=== PATIENT | female | born 1995 ===

== ENCOUNTER 2017-07-14 04:48 | Inpatient (IN) | payer MEDICAID, SELFPAY ==
[2017-07-14 05:14] VITALS: BMI 31.1
[2017-07-14] MEDS ORDERED: ceFAZolin IV 2 gm in Dextrose 2 GM/50 ML BAG IVPB ONE (05:14)
[2017-07-14] MEDS ORDERED: Oxytocin 30 units/LR 500ML 30 U/500 ML BAG IV SCH (05:15)
[2017-07-14] MEDS ORDERED: Lactated Ringer's 1,000 ML IV SCH ×3 (05:15→15:28)
[2017-07-14] MEDS: Lactated Ringer's 1,000 ML IV SCH ×2 (05:45→07:30)
[2017-07-14 06:21] LABS: BASO # 0.1 K/uL (0.0-0.2); BASO % 0.7 % (0.0-2.0); EOS # 0.1 K/uL (0.0-0.7); EOS % 1.1 % (0.0-4.0); HEMOGLOBIN 10.5 g/dL (12.0-16.0); LYMPH # 2.9 K/uL (1.0-4.3); LYMPH % 24.6 % (20.0-40.0); MEAN CELL VOLUME 75.6 fl (81.0-99.0); MEAN CORPUSCULAR HEMOGLOBIN 24.5 pg (27.0-31.0); MEAN CORPUSCULAR HGB CONC 32.4 g/dL (33.0-37.0); MONO # 0.9 K/uL (0.0-0.8); MONO % 8.1 % (0.0-10.0); NEUT # 7.6 K/uL (1.8-7.0); NEUT % 65.5 % (50.0-75.0); NRBC % 0.2 % (0.0-0.0); RBC 4.3 Mil/uL (3.80-5.20); RED CELL DISTRIBUTION WIDTH 15.4 % (11.5-14.5); WHITE BLOOD COUNT 11.6 K/uL (4.8-10.8)
[2017-07-14] MEDS ORDERED: ceFAZolin IV 1 gm in Dextrose 1 GM/50 ML BAG IVPB ONE (10:30)
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
[2017-07-14] MEDS ORDERED: Morphine 1 mg/ml preservative-free Inj(Duramorph) ONE (10:55)
[2017-07-14] MEDS ORDERED: Oxycodone/Acetaminophen 5/325 mg Tab PO PRN ×4 (12:04→15:28)
--- NOTE | 2017-07-14 12:26 | OBDS ---
DELIVERY PERSONNEL Delivery Doctor: Ari Lora MD Scrub Nurse: Nano Gatica Medical Staff Specialist: Jenise Rasheed RN Anesthesiologist: Andrea Pisano MD Resident: Dr. Mcdowell MATERNAL INFORMATION Delivery Anesthesia: Spinal Medications in Delivery: pitocin 30 untis Placenta Cultured: No Maternal Complications: None Provider Comments: Pre-op dx: 21 yo at 39 wks w/ h/o previous section, desires repe at section Post-op dx: Same Procedure: Repeat low transverse section Surgeon: Guido Pump Room Operator: Drs. Strickland and Faizan Mcdowell, PGY-2 Anesthesiologist: Dr. Nicolas Pisano Anesthesia: Spinal Findings: Viable male infant delivered through clear fluid at 11:19am. Apgars 9 and 9. Wt 3595 g ms, 7#14.8. Nuchal cord x 1 easily reduced. Normal appearing uterus, tubes and ovaries. Complications: None EBL 750 mL LABOR SUMMARY EDC: 07/21/2017 00:00 No. Babies in Womb: 1 Attempted: No Labor Anesthesia: Spinal LABOR INFORMATION Reason for Induction: Not Applicable Oxytocin: N/A Group B Beta Strep: Negative Steroids Given: None Reason Steroids Not Administered: Not Applicable MEMBRANES Membranes Rupture Method: Artificial Amniotic Fluid Color: Clear Amniotic Fluid Amount: Moderate Amniotic Fluid Odor: Normal STAGES OF LABOR Stage 3 hrs: 0 Stage 3 min: 1 CSECTION DELIVERY Primary Indication: Repeat Elective CSection Urgency: Elective CSection Incidence: Repeat Labor: No Labor Elective: Elective CSection Incision: Lower Uterine Transverse BABY A INFORMATION Infant Delivery Date/Time: 07/14/2017 11:19 Method of Delivery: Born in Route : No : N/A Forceps: N/A Vacuum Extraction: N/A Shoulder Dystocia : No SHOULDER DYSTOCIA BABY A Infant Delivery Date/Time: 07/14/2017 11:19 PRESENTATION/POSITION BABY A Presentation: Cephalic Cephalic Presentation: Vertex Breech Presentation: N/A PLACENTA INFORMATION BABY A Placenta Delivery Time : 07/14/2017 11:20 Placenta Method of Delivery: Spontaneous Placenta Status: Delivered SCORES BABY A Heart Rate 1 min: >100 bpm Resp Effort 1 min: Good Cry Reflex Irritability 1 min: Cough or Sneeze or Pulls Away Muscle Tone 1 min: Active Motion Color 1 min: Body [place], Extremities Blue Resuscitation Effort 1 min: Tactile Stimulation SCORE 1 MIN: 9 Heart Rate 5 min: >100 bpm Resp Effort 5 min: Good Cry Reflex Irritability 5 min: Cough or Sneeze or Pulls Away Muscle Tone 5 min: Active Motion Color 5 min: Body [place], Extremities Blue Resuscitation Effort 5 min: Tactile Stimulation SCORE 5 MIN: 9 INFORMATION BABY A Gestational Age at Delivery: 39.0 Gestational Status: Term Outcome : Liveborn Infant Condition : Stable Sex: Male IDENTIFICATION/MEDS BABY A ID Band Number: [id number] ID Band Location: Left Leg; Left Arm WEIGHT/LENGTH BABY A Infant Birthweight (gms): 3595 Weight (lb): 7 Infant Weight (oz): 15 CORD INFORMATION BABY A No. Cord Vessels: 3 Nuchal Cord : N/A Cord Blood Taken: N/A Suction: Mouth; Nose ASSESSMENT BABY A Infant Complications: None Physical Findings at Delivery: Within Normal Limits Respirations: Appears Normal Manager [employer]/ALS Called : No Care By: Robin Hirsch SWagnerRN Transferred To: Remains with Mother
--- NOTE | 2017-07-14 14:58 | OP ---
PROCEDURE DATE: 07/14/2017 PREOPERATIVE DIAGNOSES: This is a 21-year-old G3, P1-0-1-1 at 39 weeks with a history of a previous section, desires repeat section. POSTOPERATIVE DIAGNOSES: This is a 21-year-old G3, P1-0-1-1 at 39 weeks with a history of a previous section, desires repeat section. PROCEDURE: Repeat low-transverse section. SURGEON: Sonya Lora MD FAMILY CENTERED SPECIALIST: Drs. Susan Strickland and Faizan Mcdowell, PGY-2. Dr. Strickland was the first rn medical surgical and participated in the surgery for the entire duration of the case. She helped create exposure. She also helped maintain hemostasis, operated throughout the case on the side of the patient that was across from her and assisted in the delivery of the infant by guiding the head and by applying fundal pressure. She also repaired the right rectus muscle. This case could not have been completed without her assistance. TYPE OF ANESTHESIA: Spinal. ANESTHESIA ADMINISTERED BY: Nicolas Pisano DO FINDINGS: Viable male infant delivered through clear fluid at 11:19 a.m. Nuchal cord x1 was easily reduced. Apgars were 9 and 9 at one and five minutes respectively. The weight was 3595 grams or 7 pounds 14.8 ounces. Normal- appearing uterus, tubes and ovaries. Omentum was noted to be adherent to the peritoneum. COMPLICATIONS: None. ESTIMATED BLOOD LOSS: About 750 mL. DESCRIPTION OF THE PROCEDURE: The patient was taken to the operating room where spinal anesthesia was placed. She was then prepped and draped in the normal sterile fashion in the dorsal supine position with a leftward tilt. A Galvan was placed in the bladder. A time-out was done. The spinal was tested and found to be adequate. A Pfannenstiel skin incision was then made with a scalpel and carried through to the underlying layer of fascia with the Bovie. The fascia was incised in the midline, and the incision was extended laterally with the Bovie over a Jenny. The inferior aspect of the fascial incision was then grasped with Rosalie clamp, elevated, and the underlying rectus muscles were dissected off bluntly and with a Bovie. Attention was then turned to the inferior aspect of this incision, which in a similar fashion was grasped, tented up with Rosalie clamp, and rectus muscles dissected off bluntly and with the Bovie. The rectus muscles were then in the midline, the peritoneum was found to have been entered. The peritoneal incision was then extended superiorly and inferiorly with good visualization of the bladder. The omentum was noted to be adherent to the peritoneum. The bladder blade was then inserted and the vesicouterine peritoneum was identified, grasped with the pickups and entered sharply with the Metzenbaum scissors. This incision was then extended laterally and the bladder flap was created digitally. The bladder blade was then reinserted and the lower uterine segment was incised in transverse fashion with the scalpel. The uterine incision was then extended in a cephalocaudal direction digitally. The bladder blade was removed. The right rectus muscle was cut with bandage scissors to make more room for the delivery. The 's head delivered atraumatically. Nuchal cord x1 with easily reduced as the infant was delivered. The nose and mouth were suctioned with a bulb suction. The cord was clamped and cut. The was handed out to the waiting derrick boat captain. Cord blood was collected. The placenta was then delivered manually. The uterus was exteriorized and cleared of all clots and debris with a dry sponge curettage. The uterine incision was repaired with 0 Vicryl in a running locked fashion. Two stitches of 2-0 Monocryl were placed for hemostasis and then a second layer of 0 Vicryl was used on the right side of the incision in an imbricating fashion for further hemostasis. The abdomen was then well irrigated. The uterus was returned to the abdomen. The gutters were cleared of all clots. The uterine incision was re-examined and found to be hemostatic. The right rectus muscle was reapproximated with a few interrupted stitches of 2-0 Vicryl. An interrupted stitch of 2-0 chromic was then used to reapproximated the rectus muscles. The fascia was reapproximated with 0 Vicryl in a running fashion. The subcutaneous fat was irrigated. The Bovie was applied to bleeders for hemostasis. Interrupted stitches of 2-0 plain gut were used to close the space of the fat. The skin was closed in a subcuticular fashion with 4-0 Monocryl. The patient tolerated the procedure well. Sponge, lap, and needle counts were correct. The patient received 1 g of Ancef prior to the procedure. The patient was taken to recovery room in stable condition. Sonya Lora MD TONY
[2017-07-15 06:47] LABS: BASO # 0.1 K/uL (0.0-0.2); BASO % 0.5 % (0.0-2.0); EOS # 0.1 K/uL (0.0-0.7); EOS % 1.2 % (0.0-4.0); HEMOGLOBIN 8.7 g/dL (12.0-16.0); LYMPH # 2.3 K/uL (1.0-4.3); LYMPH % 19.3 % (20.0-40.0); MEAN CELL VOLUME 75.9 fl (81.0-99.0); MEAN CORPUSCULAR HEMOGLOBIN 24.2 pg (27.0-31.0); MEAN CORPUSCULAR HGB CONC 31.8 g/dL (33.0-37.0); MEAN PLATELET VOLUME 9.8 fl (7.2-11.7); MONO # 1.2 K/uL (0.0-0.8); MONO % 9.9 % (0.0-10.0); NEUT # 8.1 K/uL (1.8-7.0); NEUT % 69.1 % (50.0-75.0); RBC 3.59 Mil/uL (3.80-5.20); RED CELL DISTRIBUTION WIDTH 15.5 % (11.5-14.5); WHITE BLOOD COUNT 11.7 K/uL (4.8-10.8)
--- NOTE | 2017-07-15 08:19 | CP.PCM.PCO ---
Addendum Addendum: 07/15/17 08:17 Patient seen this morning. Patient recovering well and appropriately after repeat for of son. Patient reports crampy pain relieved w/ medication. Patient reports that she will bottle and breast feed.
--- NOTE | 2017-07-15 10:28 | OBPPN ---
Datetime: 07/15/2017 06:54 PP Pain Prov: Within normal limits PP Nausea Prov: Denies PP Flatus Prov: No PP BM Prov: No PP Heart Prov: Normal PP Lungs Prov: Normal PP Abdomen/Uterus Prov: Normal PP Lochia Prov: Normal PP CVA Tenderness Prov: Normal PP Extremities Prov: Normal PP C/S Incision Prov: Normal PP Progress Prov: Normal PP Impression Prov: Normal progression PP Plan Prov: Continue present management PP Progress Note Prov: 21 y/o F now , s/p repeat on 07/14/17. Pt reports feeling w ell. Pain around surgical incision and pelvis is well controlled with medication. Pt afebrile, tolera ting PO, has good appetite with NO acute events overnight. Pt able to ambulate. Pt voiding with no is sues, not passing gases and NO bowel movement yet. Pt with NO difficulties. Lochia less than menses. Pt denies headache, dizziness, CP, SOB, N/V or calf tenderness All systems reviewed and negative except as above. O: PE: -Gen: A_O, resting comfortably on bed, NAD. -Lungs: CTAB, No W/R/R. -CV: RRR, S1 and S2 present. -ABD: soft, BS +, firm fundus below umbilicus. Incision clean, dry and intact with NO induration, suppuration or bleeding. -EXT: No cyanosis, non-tender calves. A/P 21 y/o F on POD 1, stable, recovering well from . --Incision dressing removed, pt tolerated well. --Continue with post- management. -- and ambulation encouraged. --Anticipated discharge 07/17/17. Case discussed with OB contracts representative. Nyla PGY-1 OB Hospitalist on-call. Pt seen and examined on rounds 10am...agree wtih PGY1 note...TEA H/H 12/19 - anemia asymptomatic IP PP Procedures: None Vital Signs Provider PP: Reviewed
--- NOTE | 2017-07-16 08:23 | OBPPN ---
Datetime: 07/16/2017 06:20 PP Pain Prov: Within normal limits PP Nausea Prov: Denies PP Flatus Prov: Yes PP BM Prov: Yes PP Heart Prov: Normal PP Lungs Prov: Normal PP Abdomen/Uterus Prov: Normal PP Lochia Prov: Normal PP CVA Tenderness Prov: Normal PP Extremities Prov: Normal PP C/S Incision Prov: Not Applicable PP Progress Prov: Normal PP Impression Prov: Normal progression PP Plan Prov: Continue present management PP Progress Note Prov: 21 y/o F now , s/p repeat on 07/14/17. Pt reports feeling w ell. Pain around surgical incision and pelvis is well controlled with medication. Pt afebrile, tolera ting PO with NO nausea or acute events overnight. Pt voiding with no issues, passing gases and had 2 bowel movements. Pt with some difficulties and supplementing with formula. Lochia a lit tle less than menses. Pt able to ambulate. Pt denies headache, dizziness, CP, SOB, N/V or calf tender ness All systems reviewed and negative except as above. O: PE: -Gen: A_O, resting comfortably on bed, NAD. -Lungs: CTAB, No W/R/R. -CV: RRR, S1 and S2 present. -ABD: soft, BS +, firm fundus below umbilicus. Incision clean, dry and intact with NO induration, suppuration or bleeding, Sterile strips in place. -EXT: No cyanosis, non-tender calves. A/P 21 y/o F on POD 2, stable, recovering well from . --Continue with post- management. -- and ambulation encouraged. --Anticipated discharge 07/17/17. Case discussed with OB television camera operator. Nyla PGY-1 IP PP Procedures: None Vital Signs Provider PP: Reviewed
[2017-07-16] MEDS ORDERED: Pneumococcal 23-Valent Vaccine IM ONE (12:58)
--- NOTE | 2017-07-17 08:59 | OBPPN ---
Datetime: 07/17/2017 07:40 PP Pain Prov: Within normal limits PP Nausea Prov: Denies PP Flatus Prov: Yes PP BM Prov: No PP Breasts Prov: Normal PP Heart Prov: Normal PP Lungs Prov: Normal PP Abdomen/Uterus Prov: Normal PP Lochia Prov: Normal PP Vulva/Perineum Prov: Normal PP CVA Tenderness Prov: Not Done PP Extremities Prov: Normal PP C/S Incision Prov: Normal PP Progress Prov: Normal PP Comments Phys Exam Prov: Abd: Soft,NT, BS - PP Impression Prov: Normal progression PP Plan Prov: Continue present management; Discharge PP Progress Note Prov: S: 22 YO POD 3, s/p repeat . Pt is seen and examined this AM. N o acute overnight events. Pt is endorsing mild pelvic pain but pain is well controlled with pain meds . Pt is ambulating around the room and in the hallway without any difficulties. Bleeding has improved , light periods. Tolerating PO diet. No BM yet, but passing flatus. Denies chest pain, dyspnea, n/v, fever/chills, diarrhea, nausea/vomiting, and calf pain. [employer] used for translation, [id number] O: VS: wnl, afebrile GEN: Awake, alert. NAD HEENT: EOMI, moist mucosa. LUNGS: CTA B/L, no wheezing, rhonci, or rales CVS: RRR, S1,S2 no murmurs ABD: ND, +BS, soft abdomen, firm, fundus below umbilical level. Incision: Clean, dry and intact. No induration, redness or fluctuation. Steri strips intact, no de hiscence EXT: No edema, neg calf tenderness NEURO/PSYCHI: AAOx3, no grossly focal deficit, preserved affect and mood. Assessment/Plan: 22 YO POD 3, s/p repeat on 07/14/17. Pt gave to a baby boy @1 1:19. Pt remains afebrile, tolerating pain with medication, good PO intake and urinating without any difficulties. Doing well on POD 3. -C/w regular diet as tolerated. -OOB with caution SCDs for DVT prophylaxis -C/w Percocet 5/325 mg and Ibuprofen 600 mg for pain prn -Encourage and ambulating. -C/w Colace 100mg PO BID -will d/c pt home today with follow up in clinic with Dr. Michelle Agustin, PGY I Vital Signs Provider PP: Reviewed; Within Normal Limits
--- NOTE | 2017-07-17 08:59 | OBDCSUM ---
Datetime: 07/17/2017 07:44 Discharged to, Provider: Home Follow up at, Provider: Dr. Martinez Disch Instr Activity: Normal activity; May be up to bathroom; May be up for meals; May Shower Disch Instr Diet: Regular Discharge Instructions, Provider: Routine instructions given Discharge Diagnosis, Provider: Term Delivered Discharge Time: 07/17/2017 07:44 Follow up in weeks, Provider: 1 week Contraception discussed, Prov: Yes Disch Activity Restrictions: No exercising; No lifting; No driving; Minimize stair-climbing; No sexu al activity; Nothing in vagina - Junction, tampons, douche Discharge Comment, Provider: 22 YO POD3, s/p repeat on 07/14/17 @ 11:19. Pt gave to a baby boy. Baby was born at 3595g, with scores of 9/9. No complications during the post pa rtum period, incision is intact, healing well, clean and dry. Pt is ambulating and tolerating diet. DISCHARGE INSTRUCTIONS: 1. Encourage 2. PNV 1 tab po q/day 3. Ibuprofen 600 mg 1 tab po prn q6 if moderate pain 4. Ambulatory with caution, nothing per vagina, no heavy lifting, avoid stairs, if excessive bleed ing or fever please come back to the ED 5. Please follow up in Clinic with Dr. Martinez for WC in 1 week and PP follow up in 6 weeks Please see a MD for baby in 3-4 days after discharge. Kay Agustin, PGY I Discharge Diagnosis Prov Other: S/P Uncomplicated Section, clinically Stable Contraception after Delivery: Undecided
[2017-07-17 19:33] VITALS: BP 107/65; PULSE 69; RESP 19; TEMP 98.2; O2SAT 99
== END 2017-07-17 10:57 | disposition home or self-care (01) | DRG 370 ==
LOC: H.EROB2 04:48 → H.L&D 05:14 → H.OB/GYN 15:02
PROVIDERS: ADMIT Obstetrics & Gynecology Gynecology; ATTEND Obstetrics & Gynecology Gynecology
PROC: 10D00Z1 Extraction of Products of Conception, Low, Open Approach (ICD-10-PCS; principal; 2017-07-14)
PROC: 4A1HXCZ Monitoring of Products of Conception, Cardiac Rate, External Approach (ICD-10-PCS; 2017-07-14)
DX: O34.211 Maternal care for low transverse scar from previous cesarean delivery (principal); O99.02 Anemia complicating childbirth; N85.8 Other specified noninflammatory disorders of uterus; Z37.0 Single live birth; O69.81X0 Labor and delivery complicated by cord around neck, without compression, not applicable or unspecified; Z3A.39 39 weeks gestation of pregnancy; Z91.410 Personal history of adult physical and sexual abuse

== ENCOUNTER 2018-01-10 09:39 | Emergency (ER) | payer MEDICAID ==
[2018-01-10 09:42] VITALS: BMI 31.1
--- NOTE | 2018-01-10 10:46 | ED PDOC ---
HPI: Female Pain Time Seen by Provider: 01/10/18 09:56 Chief Complaint (Nursing): Female Genitourinary Chief Complaint (Provider): Vaginal bleeding History Per: Patient History/Exam Limitations: no limitations Onset/Duration Of Symptoms: Days (today) Additional Complaint(s): Pt. with vaginal bleeding. No pain. No weakness. No nausea, vomit. Is 12 weeks preg. No back pain. Past Medical History Reviewed: Nursing Documentation, Vital Signs Vital Signs: Last Vital Signs Temp 98.7 F 01/10/18 09:49 Pulse 94 H 01/10/18 09:49 Resp 17 01/10/18 09:49 BP 111/70 01/10/18 09:49 Pulse Ox 98 01/10/18 09:49 - Medical History PMH: No Chronic Diseases Denies: Depression, Diabetes, HTN - Surgical History Surgical History: - Family History Family History: States: Unknown Family Hx - Living Arrangements Living Arrangements: With Family - Social History Alcohol: None Drugs: Denies - Home Medications Home Medications: Ambulatory Orders Medication Instructions Recorded Vits96/Iron Fum/Folic 1 tab PO DAILY #30 tab 06/22/15 [ Tablet] Ibuprofen [Motrin Tab] 600 mg PO Q6H PRN #30 tab 07/15/17 Sennosides A and B [Senokot Tab] 17.2 mg PO HS #30 tab 07/15/17 oxyCODONE/Acetaminophen [Percocet 1 tab PO Q6H PRN #20 tab 07/15/17 5/325 mg Tab] Ferrous Sulfate [Feosol] 325 mg PO BID #60 tab 07/17/17 - Allergies Allergies/Adverse Reactions: Allergies Allergy/AdvReac Type Severity Reaction Status Date / Time No Known Allergies Allergy Verified 07/14/17 06:54 Review of Systems ROS Statement: Except As Marked, All Systems Reviewed And Found Negative Genitourinary Female: Positive for: Vaginal Bleeding Physical Exam - Reviewed Nursing Documentation Reviewed: Yes Vital Signs Reviewed: Yes - Physical Exam Appears: Positive for: Non-toxic, No Acute Distress Head Exam: Positive for: ATRAUMATIC, NORMAL INSPECTION, NORMOCEPHALIC Skin: Positive for: Normal Color, Warm, DRY Eye Exam: Positive for: EOMI, Normal appearance, PERRL ENT: Positive for: Normal ENT Inspection Neck: Positive for: Normal, Painless ROM Cardiovascular/Chest: Positive for: Regular Rate, Rhythm Respiratory: Positive for: CNT, Normal Breath Sounds Gastrointestinal/Abdominal: Positive for: Normal Exam, Soft Back: Positive for: Normal Inspection. Negative for: L CVA Tenderness, R CVA Tenderness Extremity: Positive for: Normal ROM. Negative for: Tenderness Neurologic/Psych: Positive for: Alert, Oriented - Laboratory Results Result Diagrams: 01/10/18 11:05 01/10/18 11:05 Interpretation Of Abn Labs: A pos - ECG O2 Sat by Pulse Oximetry: 98 Pulse Ox Interpretation: Normal - Progress ED Course And Treament: 1343: Stable. AAOx3. Pain free. Tolerated PO. Disposition - Clinical Impression Clinical Impression: Threatened - Patient ED Disposition Is Patient to be Admitted: No Counseled Patient/Family Regarding: Studies Performed, Diagnosis, Need For Followup - Disposition Referrals: [facility] [Outside] - 01/11/18 Disposition: Routine/Home Disposition Time: 13:43 Condition: STABLE Additional Instructions: Return if not better in 3 days. Instructions: Threatened Miscarriage Print Language: ESTONIAN
[2018-01-10 11:14] LABS: BASO # 0.1 K/uL (0.0-0.2); EOS # 0.1 K/uL (0.0-0.7); EOS % 1.7 % (0.0-4.0); HEMOGLOBIN 11.8 g/dL (12.0-16.0); LYMPH # 2.9 K/uL (1.0-4.3); LYMPH % 33.2 % (20.0-40.0); MEAN CELL VOLUME 77.7 fl (81.0-99.0); MEAN CORPUSCULAR HEMOGLOBIN 25.3 pg (27.0-31.0); MEAN CORPUSCULAR HGB CONC 32.6 g/dL (33.0-37.0); MEAN PLATELET VOLUME 8.8 fl (7.2-11.7); MONO # 0.6 K/uL (0.0-0.8); MONO % 7.3 % (0.0-10.0); NEUT % 56.8 % (50.0-75.0); NRBC % 0.1 % (0.0-0.0); RBC 4.67 Mil/uL (3.80-5.20); RED CELL DISTRIBUTION WIDTH 17.4 % (11.5-14.5); WHITE BLOOD COUNT 8.7 K/uL (4.8-10.8)
[2018-01-10 11:36] LABS: ALB/GLOB RATIO 1.2 (1.0-2.1); ALT/SGPT 37 U/L (9-52); AST/SGOT 36 U/L (14-36); BLOOD UREA NITROGEN 10 mg/dl (7-17); CALCIUM 9.3 mg/dL (8.4-10.2); GFR NON-AFRICAN AMERICAN > 60
--- NOTE | 2018-01-10 13:33 | US ---
Date of service: 01/10/18 Ob transvaginal ultrasound Indication: and pain Comparison: Ob transvaginal ultrasound performed 06/25/15 Technique: Real-time transabdominal pelvic ultrasound was performed. In addition a transvaginal pelvic ultrasound was necessary to better depict pelvic anatomy. Findings: The uterus measures approximately 9.1 x 6.8 x 6.3 cm. Anteverted. Cervix length measures approximately 3.9 cm. There is a single intrauterine fetus present. 2 mm yolk sac. The gestational sac measures 1.8 cm and is compatible with a gestational age of 6 weeks 1 day. The crown-rump length measures 0.4 cm and is compatible with a gestational age of 6 weeks 0 days. heart motion is not detected at this time. The right ovary measures 3.4 x 2.6 x 2.3 cm. 1.3 x 1.8 x 1.1 cm exophytic cyst. The left ovary measures 2.5 x 2.0 x 2.1 cm. Blood flow was demonstrated to both ovaries. Impression: Single intrauterine with estimated gestational age 6 weeks 0 days. heart rate is not detected at this time, possibly due to early state of . Correlate clinically and attention on follow-up. Advise an anomaly screen at 16-18 weeks gestational age 1.3 cm exophytic right ovarian cyst.
[2018-01-10 14:13] VITALS: BP 100/57; PULSE 79; RESP 18; TEMP 99; O2SAT 99
== END 2018-01-10 14:25 | disposition home or self-care (01) ==
LOC: H.ER 09:39
DX: O20.0 Threatened abortion (principal); O34.81 Maternal care for other abnormalities of pelvic organs, first trimester; N83.201 Unspecified ovarian cyst, right side; Z3A.12 12 weeks gestation of pregnancy

== ENCOUNTER 2018-01-12 08:57 | Emergency (ER) | payer MEDICAID, SELFPAY ==
[2018-01-12 08:59] VITALS: BMI 29.6
[2018-01-12 09:03] VITALS: TEMP 98.5
[2018-01-12] MEDS ORDERED: Acetaminophen-Codeine 300/30 mg Tab PO STA (09:29)
--- NOTE | 2018-01-12 09:32 | ED PDOC ---
HPI: Female Pain Time Seen by Provider: 01/12/18 09:25 Chief Complaint (Nursing): Abdominal Pain History Per: Patient Onset/Duration Of Symptoms: Days (4) Current Symptoms Are (Timing): Still Present Severity: Moderate Quality Of Discomfort: Cramping Associated Symptoms: denies: Fever, Nausea, Vomiting, Diarrhea, Urinary Symptoms Additional Complaint(s): Vaginal bleeding assoc with vaginal cramping x 4 days. Seen 2 days ago with US showing 6 weeks gestation but not FH activity Abnormal Vaginal Bleeding: Yes Past Medical History Vital Signs: Last Vital Signs Temp 98.5 F 01/12/18 08:59 Pulse 66 01/12/18 08:59 Resp 17 01/12/18 08:59 BP 88/49 L 01/12/18 08:59 Pulse Ox 98 01/12/18 08:59 - Medical History PMH: No Chronic Diseases Denies: Depression, Diabetes, HTN - Surgical History Surgical History: - Family History Family History: States: Unknown Family Hx - Home Medications Home Medications: Ambulatory Orders Medication Instructions Recorded Vits96/Iron Fum/Folic 1 tab PO DAILY #30 tab 06/22/15 [ Tablet] Ibuprofen [Motrin Tab] 600 mg PO Q6H PRN #30 tab 07/15/17 Sennosides A and B [Senokot Tab] 17.2 mg PO HS #30 tab 07/15/17 oxyCODONE/Acetaminophen [Percocet 1 tab PO Q6H PRN #20 tab 07/15/17 5/325 mg Tab] Ferrous Sulfate [Feosol] 325 mg PO BID #60 tab 07/17/17 - Allergies Allergies/Adverse Reactions: Allergies Allergy/AdvReac Type Severity Reaction Status Date / Time No Known Allergies Allergy Verified 07/14/17 06:54 Review of Systems Constitutional: Negative for: Fever Gastrointestinal: Positive for: Abdominal Pain Genitourinary Female: Positive for: Vaginal Bleeding Physical Exam - Physical Exam Appears: Positive for: Non-toxic, No Acute Distress Skin: Positive for: Normal Color, Warm, DRY Gastrointestinal/Abdominal: Positive for: Bowel Sounds, Soft, Tenderness ( suprapubic) Pelvic Exam: Positive for: External Exam Normal, Blood. Negative for: Mass, Tender Adnexa, Tender Uterus - Laboratory Results Result Diagrams: 01/12/18 09:43 01/12/18 09:43 - ECG O2 Sat by Pulse Oximetry: 98 Disposition - Clinical Impression Clinical Impression: Incomplete - Patient ED Disposition Is Patient to be Admitted: No Counseled Patient/Family Regarding: Studies Performed, Diagnosis, Need For Followup - Disposition Referrals: [facility] [Outside] Disposition: Routine/Home Disposition Time: 10:53 Condition: FAIR Instructions: Miscarriage Forms: [facility] ([place] Citizen) Print Language: SAMI
[2018-01-12 09:52] LABS: BASO # 0.1 K/uL (0.0-0.2); BASO % 0.6 % (0.0-2.0); EOS # 0.2 K/uL (0.0-0.7); EOS % 1.8 % (0.0-4.0); HEMOGLOBIN 12.3 g/dL (12.0-16.0); LYMPH # 2.3 K/uL (1.0-4.3); LYMPH % 23.1 % (20.0-40.0); MEAN CELL VOLUME 77.5 fl (81.0-99.0); MEAN CORPUSCULAR HEMOGLOBIN 25.5 pg (27.0-31.0); MEAN PLATELET VOLUME 9.1 fl (7.2-11.7); MONO # 0.7 K/uL (0.0-0.8); MONO % 6.5 % (0.0-10.0); NEUT # 6.8 K/uL (1.8-7.0); NRBC % 0.1 % (0.0-0.0); RBC 4.82 Mil/uL (3.80-5.20); WHITE BLOOD COUNT 10.1 K/uL (4.8-10.8)
[2018-01-12 10:07] LABS: ALB/GLOB RATIO 1.2 (1.0-2.1); ALBUMIN 4.2 g/dL (3.5-5.0); ALT/SGPT 44 U/L (9-52); AST/SGOT 30 U/L (14-36); BLOOD UREA NITROGEN 12 mg/dl (7-17); CALCIUM 9.5 mg/dL (8.4-10.2); GFR NON-AFRICAN AMERICAN > 60
[2018-01-12 11:17] VITALS: BP 115/80; PULSE 75; RESP 16; O2SAT 99
== END 2018-01-12 11:17 | disposition home or self-care (01) ==
LOC: H.ER 08:57
DX: O03.4 Incomplete spontaneous abortion without complication (principal)

== ENCOUNTER 2018-01-23 04:55 | Emergency (ER) | payer MEDICAID, SELFPAY ==
[2018-01-23 04:55] VITALS: BMI 29.6
[2018-01-23 05:07] VITALS: TEMP 98.4
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
[2018-01-23 06:18] LABS: BASO % 0.3 % (0.0-2.0); EOS % 0.1 % (0.0-4.0); HEMOGLOBIN 12.1 g/dL (12.0-16.0); LYMPH # 2.3 K/uL (1.0-4.3); LYMPH % 18.2 % (20.0-40.0); MEAN CELL VOLUME 77.7 fl (81.0-99.0); MEAN CORPUSCULAR HEMOGLOBIN 25.2 pg (27.0-31.0); MEAN CORPUSCULAR HGB CONC 32.5 g/dL (33.0-37.0); MEAN PLATELET VOLUME 10.2 fl (7.2-11.7); MONO # 0.5 K/uL (0.0-0.8); MONO % 3.9 % (0.0-10.0); NEUT # 9.8 K/uL (1.8-7.0); NEUT % 77.5 % (50.0-75.0); NRBC % 0.2 % (0.0-0.0); RBC 4.8 Mil/uL (3.80-5.20); RED CELL DISTRIBUTION WIDTH 16.7 % (11.5-14.5); WHITE BLOOD COUNT 12.6 K/uL (4.8-10.8)
[2018-01-23 06:50] LABS: ALB/GLOB RATIO 1.3 (1.0-2.1); ALBUMIN 4.7 g/dL (3.5-5.0); ALT/SGPT 31 U/L (9-52); AST/SGOT 28 U/L (14-36); BLOOD UREA NITROGEN 15 mg/dl (7-17); GFR NON-AFRICAN AMERICAN > 60
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
--- NOTE | 2018-01-23 09:48 | CT ---
Date of service: 01/23/2018 PROCEDURE: CT HEAD WITHOUT CONTRAST. HISTORY: trauma COMPARISON: None available. TECHNIQUE: Axial computed tomography images were obtained through the head/brain without intravenous contrast. Radiation dose: Total exam DLP = 752.74 mGy-cm. This CT exam was performed using one or more of the following dose reduction techniques: Automated exposure control, adjustment of the mA and/or kV according to patient size, and/or use of iterative reconstruction technique. FINDINGS: HEMORRHAGE: No intracranial hemorrhage. BRAIN: Normal -white matter differentiation and density are appreciated throughout the cerebrum and cerebellum with the brainstem appearing unremarkable as well. There is no mass effect. There is no suspicious extra-axial fluid collection and the midline brain anatomy appears diffusely unremarkable. VENTRICLES: Unremarkable. No hydrocephalus. CALVARIUM: No destructive bony lesion or displaced fracture identified including through the skullbase. PARANASAL SINUSES: Unremarkable as visualized. No significant inflammatory changes. MASTOID AIR CELLS: Unremarkable as visualized. No inflammatory changes. OTHER FINDINGS: None. IMPRESSION: Normal appearing CT of the Head. Follow-up CT or MRI are available as clinically warranted.
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
[2018-01-23 10:49] VITALS: BP 110/70; PULSE 74; RESP 17
[2018-01-28 11:07] VITALS: O2SAT 99
== END 2018-01-23 10:35 | disposition home or self-care (01) ==
LOC: H.ER 04:55
DX: S09.90XA Unspecified injury of head, initial encounter (principal); W22.8XXA Striking against or struck by other objects, initial encounter; Y92.89 Other specified places as the place of occurrence of the external cause; J34.2 Deviated nasal septum

== ENCOUNTER 2018-09-02 21:56 | Emergency (ER) | payer SELFPAY ==
[2018-09-02 21:57] VITALS: BMI 29.6
[2018-09-02 22:22] VITALS: BP 100/64; PULSE 74; RESP 18; TEMP 98.3; O2SAT 99
[2018-09-02] MEDS ORDERED: Sodium Chloride 0.9% 1,000 ML IV STA (22:40)
--- NOTE | 2018-09-02 22:52 | ED PDOC ---
HPI: General Adult Time Seen by Provider: 09/02/18 22:38 Chief Complaint (Nursing): Female Genitourinary Chief Complaint (Provider): syncope History Per: Patient (23 y/o female approx LMP 2/2 10 week approx here with syncopal episode that occurred while having lunch at noon. States she felt dizzy/room spinning and headache as same time. Awoke with notice of right arm and leg numbness and weakness. Notes she vomited x 2 episodes. Has been told by her pmd she has anemia. Denies any abd pain/vaginal bleeding etc.) Past Medical History Reviewed: Historical Data, Nursing Documentation, Vital Signs Vital Signs: Last Vital Signs Temp 98.3 F 09/02/18 22: Pulse 74 09/02/18 22:17 Resp 18 09/02/18 22:17 BP 100/64 09/02/18 22:17 Pulse Ox 99 09/02/18 22:17 Primary Care Provider: FAMILY PROVIDER,NO - Medical History PMH: Asthma Denies: Depression, Diabetes, Hepatitis, HIV, HTN, Seizures, Sexually Transmitted Disease - Surgical History Surgical History: - Family History Family History: States: Unknown Family Hx - Home Medications Home Medications: Ambulatory Orders Medication Instructions Recorded Vits96/Iron Fum/Folic 1 tab PO DAILY #30 tab 06/22/15 [ Tablet] Ibuprofen [Motrin Tab] 600 mg PO Q6H PRN #30 tab 07/15/17 Sennosides A and B [Senokot Tab] 17.2 mg PO HS #30 tab 07/15/17 oxyCODONE/Acetaminophen [Percocet 1 tab PO Q6H PRN #20 tab 07/15/17 5/325 mg Tab] Ferrous Sulfate [Feosol] 325 mg PO BID #60 tab 07/17/17 - Allergies Allergies/Adverse Reactions: Allergies Allergy/AdvReac Type Severity Reaction Status Date / Time No Known Allergies Allergy Verified 07/14/17 06:54 Review of Systems ROS Statement: Except As Marked, All Systems Reviewed And Found Negative Physical Exam - Reviewed Nursing Documentation Reviewed: Yes Vital Signs Reviewed: Yes - Physical Exam Appears: Positive for: Well, Non-toxic, No Acute Distress Head Exam: Positive for: ATRAUMATIC, NORMAL INSPECTION, NORMOCEPHALIC Skin: Positive for: Normal Color, Warm, DRY Eye Exam: Positive for: EOMI, Normal appearance, PERRL ENT: Positive for: Normal ENT Inspection Neck: Positive for: Normal, Painless ROM Cardiovascular/Chest: Positive for: Regular Rate, Rhythm Respiratory: Positive for: CNT, Normal Breath Sounds Gastrointestinal/Abdominal: Positive for: Normal Exam, Soft Back: Positive for: Normal Inspection Extremity: Positive for: Normal ROM Neurological/Psych: Positive for: Awake, Alert, Normal Tone, Other (mild weakness noted on dorsoflexion right foot.) - Laboratory Results Result Diagrams: 09/02/18 23:34 09/02/18 23:34 - ECG O2 Sat by Pulse Oximetry: 99 - Progress ED Course And Treament: REGLAN 10 MG IV X 1 DOSE NS 1 LITER WIDE OPEN WILL RE-EVALUATE. WE HAVE DISCUSSED POSSIBLE NEED FOR CT OF HEAD IF SYMPTOMS DO NOT IMPROVE. PATIENT NOTED TO HAVE LEFT, HAVING REMOVED HER OWN IV WITHOUT INFORMING STAFF AND WITHOUT RE-EVALUATION OR ULTRASOUND. Disposition - Clinical Impression Clinical Impression: Syncope - Patient ED Disposition Is Patient to be Admitted: No - Disposition Disposition: Left W/O Treatment Disposition Time: 00:42 Condition: FAIR
[2018-09-02 23:37] LABS: BASO % 0.6 % (0.0-2.0); EOS % 0.4 % (0.0-4.0); HEMOGLOBIN 10.3 g/dL (12.0-16.0); LYMPH # 1.8 K/uL (1.0-4.3); LYMPH % 22.7 % (20.0-40.0); MEAN CELL VOLUME 78.7 fl (81.0-99.0); MEAN CORPUSCULAR HEMOGLOBIN 25.8 pg (27.0-31.0); MEAN CORPUSCULAR HGB CONC 32.8 g/dL (33.0-37.0); MEAN PLATELET VOLUME 10.1 fl (7.2-11.7); MONO # 0.8 K/uL (0.0-0.8); MONO % 9.7 % (0.0-10.0); NEUT # 5.2 K/uL (1.8-7.0); NEUT % 66.6 % (50.0-75.0); NRBC % 0.1 % (0.0-0.0); RBC 3.99 Mil/uL (3.80-5.20); RED CELL DISTRIBUTION WIDTH 16.5 % (11.5-14.5); WHITE BLOOD COUNT 7.9 K/uL (4.8-10.8)
[2018-09-02 23:40] LABS: INR 1.1
[2018-09-02 23:43] LABS: PARTIAL THROMBOPLASTIN TIME 27.7 Seconds (25.6-37.1)
[2018-09-02 23:45] LABS: ALB/GLOB RATIO 1.2 (1.0-2.1); ALBUMIN 3.6 g/dL (3.5-5.0); ALT/SGPT 26 U/L (9-52); AST/SGOT 16 U/L (14-36); BLOOD UREA NITROGEN 11 mg/dl (7-17); CALCIUM 8.7 mg/dL (8.4-10.2); GFR NON-AFRICAN AMERICAN > 60
--- NOTE | 2018-09-03 19:01 | CARD ---
APPROVED REPORT Date of service: 09/02/2018 EKG Measurement Heart [id number] CT [id number] <Conclusion> Normal sinus rhythm Normal ECG
== END 2018-09-03 00:40 | disposition left against medical advice (07) ==
LOC: H.ER 21:56
DX: R55 Syncope and collapse (principal); D64.9 Anemia, unspecified; O99.011 Anemia complicating pregnancy, first trimester; O26.891 Other specified pregnancy related conditions, first trimester; O99.511 Diseases of the respiratory system complicating pregnancy, first trimester; Z3A.10 10 weeks gestation of pregnancy
CPT/HCPCS: 80053; 81025; 82948; 84702; 85025; 85610; 85730; 93005; 96374; 99284; J2765; J7030